=== PATIENT | male | born 1980 | race Caucasian/White ===

== ENCOUNTER 2023-10-14 08:37 | Outpatient (CLI) | payer BC, SELFPAY ==
[2023-10-16 10:58] VITALS: BMI 34.9
--- NOTE | 2023-10-16 10:58 | WPDHOMESLEEP ---
Sleep Study - Home Unattended Date of Study: 10/14/23 Ordering Provider: Ted Degroot MD Interpreting Provider: Umu Recinos MD Home Sleep Study Type: Watch PAT Height: 1.73 m Weight: 104.326 kg Body Mass Index: 34.9 Neck Circumference (inches): 18 [place]: 3 Reason for Sleep Study Restless sleep, multiple nighttime awakenings Sleep History Gael Izquierdo is a 42-year-old man with complaints of restless sleep with multiple nighttime awakenings. He has hypertension, on lisinopril / hydrochlorothiazide and he takes sertraline to help relax. He occasionally awakens from sleep feeling short of breath. He occasionally wakes at night with heartburn, belching or coughing.??He frequently snores, frequently snores loudly enough that others complain. He occasionally has trouble sleeping when he has a cold. He rarely wakes up gasping for breath during the night. He frequently has breathing problems at night. He never sweats excessively at night. He never notices his heart pounding or beating irregularly during the night. He never falls asleep during the day. He never falls asleep involuntarily, never falls asleep while driving. He never experiences loss of muscle tone with strong emotion. He never has daytime difficulty at work due to excessive sleepiness. He never feels paralyzed on waking or falling asleep. He never experiences vivid dreams upon waking or falling asleep. He never feels afraid of going to sleep. He never has nightmares. He occasionally recalls his dreams. He occasionally has thoughts racing through his mind. He never feels sad or depressed. He never feels anxiety. He never notices parts of his body jerk. He never kicks during the night. He never feels crawling or aching feelings in his legs. He never feels leg pain at night. He never rarely has morning jaw pain, never grinds his teeth at night. He never feels bothered by pain during the day, never awakened by pain during the night. He never wakes up feeling stiff in the morning, and he occasionally wakes feeling sore or achy. He rarely awakens with pain in his neck, spine, or joints. Normal bedtime is between 10:00 p.m. and 11:00 p.m., falling asleep within an hour, waking between 4-5 times at night. while awake, he may get a drink of water. He is able to return to sleep within 10-15 minutes. These awakenings generally occur in the middle of the night. He wakes for the day by 7:00 a.m.. On weekends, bedtime is also between 10:00 p.m. and 11:00 p.m., wake time is between 7:00 a.m. and 8:00 a.m.. He Does not take naps during the day. A short nap lasting 10-15 minutes is not refreshing. He may feel adequate on waking. He feels best in the afternoon. Habits:??Tobacco: Quit 4 months ago Caffeine: not reported. Alcohol: 3-4 servings, 3 days out of the week Recreational substances: none [facility] Past Medical History Medical History (Updated 10/16/23 @ 11:15 by Umu Recinos MD) Hypertension Social History Social History (Updated 10/16/23 @ 11:10 by Umu Recinos MD) Smoking status: Former smoker Alcohol intake: current Lack of Transportation: No Lack of Food: Never True Current Housing: I Have Housing Concerned About Future Housing: No Difficulty Paying Gas/Electric Bills: No Difficulty Paying for Meds: No Currently Unemployed: No Education: Associate Degree Difficulty w/ Childcare or Family Care: No Medications Home Medications Medication Instructions Recorded Confirmed Type lisinopril 20 1 tablet PO DAILY #90 tabs 10/07/23 10/07/23 Rx mg-hydrochlorothiazide 12.5 mg tablet sertraline 50 mg tablet 50 mg PO DAILY #90 tabs 10/07/23 10/07/23 Rx Sleep Procedure The sleep study was completed using [employer] a technically adequate device with seven channels: peripheral arterial tone, actigraphy, body position, snore, respiratory movement, pulse oximetry, sleep staging, and heart rate. Prior to us
== END 2023-10-15 07:30 | disposition home or self-care (01) ==
LOC: ANHCSM 08:38
PROVIDERS: PCP Family Medicine; Visit Provider Family Medicine
DX: G47.9 Sleep disorder, unspecified (principal); R06.3 Periodic breathing; F43.23 Adjustment disorder with mixed anxiety and depressed mood; E66.9 Obesity, unspecified; I10 Essential (primary) hypertension
CPT/HCPCS: 95800

== ENCOUNTER 2024-02-09 11:45 | Outpatient (CLI) | payer BC, SELFPAY ==
[2024-02-09 18:41] LABS: Basophils Absolute Auto 0.1 K/mm3 (0.0-0.1); Basophils Percent Auto 0.7 % (0.2-1.2); Eosinophils Absolute Auto 0.1 K/mm3 (0-0.3); Eosinophils Percent Auto 1.5 % (0-4.4); Hematocrit 46.6 % (42.0-52.0); Hemoglobin 15.1 g/dL (14.0-18.0); Immature Granulocyte Absolute 0.04 K/mm3 (0.00-0.031); Immature Granulocyte Percent A 0.5 % (0-0.5); Lymphocytes Absolute Auto 1.61 K/mm3 (0.9-3.2); Lymphocytes Percent Auto 21.4 % (18.3-44.2); Mean Corpuscular HGB Conc 32.4 g/dl (32-36); Mean Corpuscular Hemoglobin 27.6 pg (26-34); Mean Platelet Volume 9.6 fl (7.4-10.4); Monocytes Absolute Auto 0.5 K/mm3 (0.1-0.6); Monocytes Percent Auto 6.6 % (2.6-8.5); Neutrophils Absolute Auto 5.2 K/mm3 (1.3-6.7); Neutrophils Percent Auto 69.3 % (45.5-73.1); Platelet Count Result 323 k/mm3 (150-375); Red Blood Count 5.48 M/mm3 (4.6-6.20); Red Cell Distribution Width 12.6 % (11.5-14.5); White Blood Count 7.5 K/mm3 (4.5-10.0)
[2024-02-09 20:49] LABS: Anion Gap 12 mmol/L (4-12); Blood Urea Nitrogen 16 mg/dL (9-20); Calcium 9.3 mg/dL (8.4-10.2); Carbon Dioxide 23 mmol/L (22-30); Chloride 96 mmol/L (98-107); Cholesterol 269 mg/dL (0-200); Estimated Glomerular Filt Rate > 60; Glucose 367 mg/dL (65-110); HDL Direct 38 mg/dL; Potassium 4.5 mmol/L (3.4-5.0); Sodium 131 mmol/L (137-145); Triglycerides 448 mg/dL (<150)
[2024-02-09 21:00] LABS: LDL Cholesterol Direct 157 mg/dL
== END 2024-02-09 11:46 | disposition home or self-care (01) ==
LOC: ANHGOSHLAB 11:48
PROVIDERS: PCP Family Medicine; Visit Provider Family Medicine
DX: E66.9 Obesity, unspecified (principal); F43.23 Adjustment disorder with mixed anxiety and depressed mood
CPT/HCPCS: 36415; 80048; 80061; 84443; 85025

== ENCOUNTER 2025-03-14 13:22 | Outpatient (CLI) | payer OTHER, SELFPAY ==
[2025-03-14 19:41] LABS: Alanine Aminotransferase 25 U/L (6-50); Albumin Level 4.6 g/dL (3.5-5.1); Alkaline Phosphatase 86 U/L (38-126); Anion Gap 9 mmol/L (4-12); Aspartate Amino Transferase 31 U/L (17-59); Bilirubin,Total 0.5 mg/dL (0.2-1.3); Blood Urea Nitrogen 17 mg/dL (9-20); Calcium 9.7 mg/dL (8.4-10.2); Carbon Dioxide 30 mmol/L (22-30); Chloride 96 mmol/L (98-107); Cholesterol 301 mg/dL (0-200); Estimated Glomerular Filt Rate > 60; Glucose 117 mg/dL (65-110); HDL Direct 67 mg/dL; Potassium 4.7 mmol/L (3.4-5.0); Sodium 135 mmol/L (137-145); Total Protein 7.9 g/dL (6.3-8.2); Triglycerides 205 mg/dL (<150)
[2025-03-14 19:53] LABS: LDL Cholesterol Direct 187 mg/dL
[2025-03-14 19:57] LABS: Creatinine Urine 51.8 mg/dL
[2025-03-14 20:35] LABS: MALB Creatinine Ratio < 11.6 mg/g (0-30); Microalbumin Urine Random < 6.0 mg/L (0-16.7)
[2025-03-14 20:56] LABS: Hemoglobin A1C 6.8 % (<5.7)
== END 2025-03-14 13:23 | disposition home or self-care (01) ==
LOC: ANHGOSHLAB 13:23
PROVIDERS: PCP Family Medicine; Visit Provider Family Medicine
DX: E11.9 Type 2 diabetes mellitus without complications (principal)
CPT/HCPCS: 36415; 80053; 80061; 82043; 83036